=== PATIENT | female | born 1960 | race Caucasian/White ===

== ENCOUNTER → 2019-09-12 | Outpatient (CLI) | payer MEDICARE, OTHER, MEDICAID ==
[~2019-09-12] VITALS: Ht 177.8 cm; Wt 65.0 kg
[~2019-09-12] MED LIST: CALCIUM ACETATE1 GM PO; ELIQUIS5 MG PO
[2019-09-12 14:43] VITALS: BP 204/106
[2019-09-12 17:00] VITALS: BP 222/123
[2019-09-12 17:15] VITALS: BP 183/91
[2019-09-12 17:28] VITALS: BP 178/83
--- NOTE | 2019-09-20 10:12 | H ---
[address] [address] HISTORY AND PHYSICAL Name: ELIZABETH ZELAYAA Alie Room: [facility]#: [id number] Admission: 09/12/19 Attend Phys: Dayday Sigala MD Discharge: Date of : 56 Report #: [id number] THIS REPORT FOR: //name// CC: [facility] physician/PCP Dayday Sigala DATE OF SERVICE: 09/12/2019 CHIEF COMPLAINT: 1. End-stage renal disease. 2. Thrombosed AV graft, right arm. HISTORY OF PRESENT ILLNESS: The patient is well known to me. She had a right upper extremity AV graft placed by myself this past summer. She has had multiple episodes of acute thromboses. She re-presents today with acutely thrombosed AV graft. We are planning a graft thrombectomy and intervention. REVIEW OF SYSTEMS: A 12-point review of systems was reviewed and negative as per HPI. PAST MEDICAL HISTORY: Significant for end-stage renal disease, diabetes, dyslipidemia, coronary artery disease, stroke, DVT, pneumothorax, and venous stasis. PAST SURGICAL HISTORY: Significant for cholecystectomy, skin graft, tonsillectomy, tunneled dialysis catheter, and multiple access procedures. FAMILY HISTORY: Significant for chronic kidney disease, osteoporosis, hypertension, coronary artery disease, and diabetes. SOCIAL HISTORY: The patient denies alcohol or drug use. She is a current every day smoker. ALLERGIES: Include MORPHINE, COUMADIN, CODEINE, and PENICILLIN. HOME MEDICATIONS: Include Eliquis and aspirin. PHYSICAL EXAMINATION: GENERAL: The patient in no acute distress. She is alert and oriented. VITAL SIGNS: Afebrile. Vital signs stable. HEENT: Normocephalic, atraumatic. NECK: Supple. HEART: Regular. LUNGS: Clear. ABDOMEN: Soft, nontender, nondistended. EXTREMITIES: Right upper extremity AV graft which is oc[place] [address] HISTORY AND PHYSICAL Name: ROMAN ZELAYA Room: [facility]#: [id number] Admission: 09/12/19 Attend Phys: Dayday Sigala MD Discharge: Date of : 56 Report #: [id number] thrill. NEUROLOGIC: Grossly intact. ASSESSMENT: Thrombosed right upper extremity AV graft. PLAN: AV graft thrombectomy and intervention. <ELECTRONICALLY SIGNED> By: Dayday Sigala MD 09/20/19 1012 1717 [id number] Sigala MD /nt
--- NOTE | 2019-09-20 10:12 | OP ---
[address] [address] OPERATIVE REPORT Name: ELIZABETH ZELAYAA Alie Room: [facility]#: [id number] Admission: 09/12/19 Attend Phys: Dayday Sigala MD Discharge: Date of : 56 Report #: [id number] THIS REPORT FOR: //name// CC: [facility] physician/PCP Dayday Sgiala DATE OF SERVICE: 09/12/2019 PREOPERATIVE DIAGNOSES: 1. End-stage renal disease. 2. Thrombosed arteriovenous graft, right upper extremity. POSTOPERATIVE DIAGNOSES: 1. End-stage renal disease. 2. Thrombosed arteriovenous graft, right upper extremity. PROCEDURES: 1. AV graft thrombectomy. 2. Right arm fistulogram. 3. Angioplasty and stenting of the venous outflow stenosis using a 9 x 60 Fluency stent. 4. Thrombolysis, right AV graft. SURGEON: Dayday Sigala MD DYE HOUSE WORKER: None. ANESTHESIA: Local sedation. COMPLICATIONS: None. ESTIMATED BLOOD LOSS: Minimal. INDICATIONS FOR PROCEDURE: The patient is a very pleasant 58-year-old white female well known to me. She has a thrombosed AV graft in her right arm. This was recently declotted by my partner, Dr. Brower, 1 month ago. At that time, he ballooned the venous outflow stenosis. Informed consent was obtained from the patient with risks including but not limited to bleeding, infection, need for further surgery, pain, , heart attack, stroke, steal syndrome, distal embolization. The patient understood these risks and was agreeable to proceed. DESCRIPTION OF PROCEDURE: The patient was taken to the Interventional Radiology suite. She was placed in supine position. Sedation was initiated. Right arm was prepped and draped in usual sterile fashion. I infused 10 mL of 1% lidocaine over the AV graft. Prior to the procedure, in the preoperative holding area, I accessed the AV graft using a micro kit and infused 2 [place] [address] OPERATIVE REPORT Name: ROMAN ZELAYA Room: [facility]#: [id number] Admission: 09/12/19 Attend Phys: Dayday Sigala MD Discharge: Date of : 56 Report #: [id number] throughout the clot to lyse it. Once in the interventional suite, I accessed the AV graft in antegrade fashion near the arterial anastomosis. I used Seldinger technique to exchange out for a 6-Luxembourger sheath. I passed a wire into the central venous structures. There was clearly a stenosis at the venous anastomosis of the graft. Using a combination of 6 and 8 mm balloons, I thrombectomized the entire AV graft and smashed the clot as well. I angioplastied the venous anastomosis, which was the cause of the thrombosis. I then accessed the graft in a retrograde fashion and exchanged out for a 6-Luxembourger sheath. I carefully cut past the Glidewire across the arterial anastomosis and the remainder of the clot. I inflated a 4 mm balloon in the brachial artery and withdrew it into the AV graft clearing out the arterial limb of the graft. I now had a palpable thrill within the AV graft. There was quite a bit of residual stenosis at the venous anastomosis. For this reason, I placed a 9 x 60 Fluency stent across the venous anastomosis. I post-dilated this with 8 mm balloon. Completion imaging showed excellent result with resolution of the stenosis. The patient now had a roaring thrill within the fistula. Distal angiogram showed no evidence of embolization down the brachial artery. I removed my sheath and placed a Monocryl stitch in the skin. There was no bleeding or hematoma. The patient tolerated the procedure well and was taken alert and awake to recovery room in good condition. Of note, I did use heparin throughout the procedure. <ELECTRONICALLY SIGNED> By: Dayday Sigala MD 09/20/19 1012 1721 [id number] Sigala MD /nt
== END | disposition home or self-care (01) ==
LOC: M.INT 14:14
DX: T82.868A Thrombosis due to vascular prosthetic devices, implants and grafts, initial encounter (principal); E11.22 Type 2 diabetes mellitus with diabetic chronic kidney disease; N18.6 End stage renal disease; I25.10 Atherosclerotic heart disease of native coronary artery without angina pectoris; Z98.890 Other specified postprocedural states; Z79.899 Other long term (current) drug therapy; Z82.49 Family history of ischemic heart disease and other diseases of the circulatory system; Z86.73 Personal history of transient ischemic attack (TIA), and cerebral infarction without residual deficits; Z90.49 Acquired absence of other specified parts of digestive tract; Z79.01 Long term (current) use of anticoagulants; Z83.3 Family history of diabetes mellitus; Z86.718 Personal history of other venous thrombosis and embolism; Z84.1 Family history of disorders of kidney and ureter; Z88.0 Allergy status to penicillin; Z88.8 Allergy status to other drugs, medicaments and biological substances; Z79.82 Long term (current) use of aspirin